=== PATIENT | female | born 1995 | race Caucasian/White ===

== ENCOUNTER → 2017-07-06 22:55 | Observation (INO) ==
[2017-07-06 21:35] LABS: Amphetamine Screen,Urine Negative ng/mL (Cutoff=1000); Barbiturate Screen,Urine Negative ng/mL (Cutoff=200); Benzodiazepines Screen,Urine Negative ng/mL (Cutoff=200); Cannabinoid Screen,Urine Negative ng/mL (Cutoff = 50); Cocaine Screen,Urine Negative ng/mL (Cutoff= 300); Opiate Screen,Urine Negative ng/mL (Cutoff=300); Phencyclidine Screen,Urine Negative ng/mL (Cutoff=25)
--- NOTE | 2017-07-06 22:36 | OB/GYN Progress Note ---
Date of Encounter: 07/06/17 Time of Encounter: 22:34 - Assessment and Plan (1) 38 weeks gestation of Current Visit: Yes Status: Acute NST reactive (2) False labor after 37 completed weeks of gestation Current Visit: Yes Status: Acute SSE with scant amount physiologic appearing discharge. Negative pooling, negative nitrazine, negative fern. SVE 2/50/-2, no change on repeat exam after ambulation. Discharge home with precautions. Subjective - Subjective Interval history: 22 year-old presenting at 38w4d with c/o contractions and leaking fluid. She reports the contractions are irregular but are getting stronger and she cannot talk through them. She reports some scant amounts of clear, thin, vaginal discharge. No other complaints. Good FM. Antepartum ROS: loss of fluid, movement normal, contractions, no vaginal bleeding Objective - Vital Signs Vital Signs: Intake and Output 07/06/17 07/06/17 07/06/17 07:59 15:59 23:59 Other: Weight 93.8 kg Patient Weight 07/06/17 23:59 Weight 93.8 kg - Exam FHR: category 1 FHR comments: NST reactive Auscultation: bilateral: normal Abdomen: Present: soft, gravid. Absent: tenderness Uterus: Absent: tenderness Cervical dilation: 2/50/-2 x 2 exams
== END | disposition home or self-care (01) ==
LOC: 1NENULAB
PROVIDERS: ADMIT Obstetrics & Gynecology; ATTEND Obstetrics & Gynecology

== ENCOUNTER 2017-07-12 06:00 | Inpatient (IN) ==
[2017-07-12] MEDS ORDERED: Famotidine 20 MG/2 ML VIAL IVP PRN (06:50)
[2017-07-12] MEDS ORDERED: Naloxone 0.4 MG/ML INJ IVP PRN (06:50)
[2017-07-12] MEDS ORDERED: miSOPROStol 25 MCG TABLET PO PRN (06:50)
[2017-07-12] MEDS ORDERED: Ondansetron 4 MG/2 ML VIAL IVP PRN (06:50)
[2017-07-12] MEDS ORDERED: D5% in Lactated Ringers 1,000 ML IVC SCH (07:00)
[2017-07-12 07:24] LABS: Basophils % 0.3 %; Eosinophils # 0.3 K/mcL (0.0-0.6); Eosinophils % 2.4 %; Hematocrit 41.6 % (35.3-44.9); Hemoglobin 13.8 g/dL (11.5-15.4); Immature Granulocytes % 0.7 % (0-4); Lymphocytes # 3.3 K/mcL (0.6-4.6); Lymphocytes % 26.7 %; Mean Corpuscular HGB Conc 33.2 g/dL (31.6-35.5); Mean Corpuscular Hemoglobin 30.7 pg (28.0-33.3); Mean Corpuscular Volume 92.7 fL (83.0-100.0); Mean Platelet Volume 10.4 fL (9.4-12.4); Monocytes # 0.9 K/mcL (0.0-1.3); Monocytes % 7.6 %; Neutrophils # 7.7 K/mcL (1.6-8.9); Platelet Count 266 K/mcL (140-400); Red Blood Count 4.49 M/mcL (3.82-4.97); Red Cell Distribution Width 12.8 % (11.5-14.5); Segmented Neutrophils % 62.3 %
[2017-07-12 07:33] LABS: Amphetamine Screen,Urine Negative ng/mL (Cutoff=1000); Barbiturate Screen,Urine Negative ng/mL (Cutoff=200); Benzodiazepines Screen,Urine Negative ng/mL (Cutoff=200); Cannabinoid Screen,Urine Negative ng/mL (Cutoff = 50); Cocaine Screen,Urine Negative ng/mL (Cutoff= 300); Opiate Screen,Urine Negative ng/mL (Cutoff=300); Phencyclidine Screen,Urine Negative ng/mL (Cutoff=25)
[2017-07-12] MEDS ORDERED: miSOPROStol 25 MCG TABLET PO SCH (08:00)
--- NOTE | 2017-07-12 08:48 | OB/GYN History & Physical ---
Date of Encounter: 07/12/17 Time of Encounter: 08:29 Assessment and Plan (1) 39 weeks gestation of Current visit: Yes Status: Acute The patient has received appropriate and adequate care. She is measuring large for gestational age with an ultrasound having an estimated weight of 8 lbs. 2 oz. at 37 weeks. (2) Polyhydramnios affecting in third trimester Current visit: Yes Status: Acute Acute onset the last 2 weeks of , otherwise unknown etiology, for induction of labor (3) Encounter for induction of labor Current visit: Yes Status: Acute Induction of labor medically indicated for polyhydramnios, to control rupture of membranes (4) Obesity affecting in third trimester, antepartum Current visit: Yes Status: Acute History of Present Illness Chief complaint: IOL 39 weeks, POLY HPI: Ms. Oswald is a 22 year old female, with an LMP of 10/09/16, EDC 07/16/17 confirmed by ultrasound, currently at 39 weeks and 3 days, who presents for labor and delivery for induction of labor. was complicated by obesity but had normal glucose testing and has had recent onset of polyhydramnios. Ultrasound on 07/09/17 showed an HARDY of 31.8. Ultrasound on showed an estimated weight of 8 lbs. 2 oz. She has had irregular contractions but no vaginal bleeding or loss of fluid. Fetus is active. Blood type is A+, she is rubella immune, varicella immune and GBS negative. She has previously delivered a 8 lbs. 1 oz. baby vaginally. Past Med Surg Social Fam HX - Past Medical History Source: patient, old records reviewed Medical history: other (Ovarian cysts) Psychiatric history: anxiety - Past Surgical History Surgical History: non-contributory - Social History Smoking Status: Never smoker Smokeless Tobacco Status: No Alcohol use: none Drug use: none - Family History Father Adopted: No Family Member Ethnicity: Non- Living Status: Still Living Hx Family Cardiac Disorders: No Hx Family Respiratory Disorders: No Hx Family Cancer: No Hx Family GI Disorders: No Hx Family Genitourinary Disorders: No Hx Family Endocrine Disorder: No Hx Family Musculoskeletal Disorders: No Hx Family Neuromuscular Disorders: No Hx Family Neurologic Disorders: No Hx Family HEENT Disorders: No Hx Family Autoimmune Disorders: No Hx Family Reproductive Disorders: No Hx Family Psychosocial Disorders: No Hx Family Medical Disorders: No Obstetrical History - Pregnancies : 2 Para: 1 Term: 1 : 0 Ab's: 0 Livin Medications and Allergies Vit #108/Iron/FA [ One Tablet] 1 tab PO DAILY 07/06/17 [History ] 3 Allergy/AdvReac Type Severity Reaction Status Date / Time Sulfa (Sulfonamide AdvReac Hives Verified 07/06/17 20:12 Antibiotics) Review of System OB All systems PM: reviewed and no additional remarkable complaints except as stated - Constitutional Constitutional ROS IM: weight gain - Gastrointestinal Gastrointestinal: cramping Exam - Vital Signs Vital signs: Afebrile, vital signs stable - Constitutional Constitutional: well developed, well nourished, no acute distress, obese - HEENT HEENT: Normocephaly, Mucus Membranes Moist - Neck Neck exam: normal inspection, supple - Lungs Respiratory exam: CTAB - Cardiovascular Cardiovascular exam: RRR - Breasts Breast: bilateral: normal (gravid) - Abdomen Abdomen: Present: bowel sounds normal, gravid, non tender - Extremities Extremities exam: normal inspection, pedal edema, warm Deep Tendon Reflex Grade: 2+ Normal - Vulva Vulva: bilateral: normal - Vagina Vagina: Present: normal moisture - Cervix Dilation: 3 Effacement: 70 Station: -3 - Anus/Rectum Anus/Rectum: Present: normal perianal skin Results Result Diagrams: 07/12/17 06:20 Abnormal lab results WBC 12.4 K/mcL (4.3-11.1) H 07/12/17 06:20 All other labs normal. - VTE Reasons for not Prescribing Prophylaxis: Treatment not Indicated - Low risk for VTE
[2017-07-12] MEDS ORDERED: D5% in 0.45% NACL 1,000 ML IVC SCH (09:15)
[2017-07-12] MEDS ORDERED: Ringers Solution, Lactated 1,000 ML ONE ×5 (11:26→22:30)
--- NOTE | 2017-07-12 11:28 | OB Labor Progress Note ---
Date of Encounter: 07/12/17 Time of Encounter: 11:26 Labor Progress Note - Subjective Subjective: The patient is comfortable with contractions, status post Cytotec 25 MCG's at 0730 - Vital Signs Vital Signs: Afebrile, vital signs stable - Cervix Cervix: 4/70/-1, vertex with bulging bag - Heart Tones Heart Tones: 130s baseline, CAT 1 - [place]: Contractions 2-4 minutes - Interventions Interventions: 39 week IUP for induction of labor for polyhydramnios - Plan Plan: Amniotomy performed with large amount of green stained fluid and large chunks of meconium. IUPC placed without difficulty. Respiratory to be notified to be present for delivery. Patient aware findings. Continue induction of labor. Patient is being prepped for an epidural, augmentation with Pitocin as needed.
[2017-07-12] MEDS ORDERED: Ringers Solution, Lactated 500 ML IVC ONE (11:36)
[2017-07-12] MEDS ORDERED: EPHEDrine 50 MG/ML VIAL IVP PRN (11:36)
[2017-07-12] MEDS ORDERED: Epidural Premix (fent/bupiv) 110 ML EP ONE ×2 (11:38→18:28)
[2017-07-12] MEDS ORDERED: Epidural Premix (fent/bupiv) 110 ML EP SCH (11:45)
--- NOTE | 2017-07-12 11:49 | Anesthesia Evaluation PreOp ---
Date of Encounter: 07/12/17 Time of Encounter: 11:48 - Past History Planned Operation: SARA Cardiac History: Denies any Significant Hx Pulmonary History: Denies Any Significant HX CERAMICS TEST ENGINEER History: Denies Any Significant HX Other Medical History: Denies Any Significant HX Anesthesia History: No Prior Anesthetic Complications : Yes (39.3) Alcohol Use: none Drug use: none Medications and Allergies Vit #108/Iron/FA [ One Tablet] 1 tab PO DAILY 07/06/17 [History ] 3 Allergy/AdvReac Type Severity Reaction Status Date / Time Sulfa (Sulfonamide AdvReac Hives Verified 07/06/17 20:12 Antibiotics) - Meds/Allergy Pre-op Review Medications Reviewed: Yes Allergies Reviewed: Yes Beta Blockers on Current Med List: No Anesthesia Results - Labs 07/12/17 06:20 Anesthesia Exam Height: 1.7m Weight: 93.8 NPO (# of Hours): 6 Pain Scale: 5 Pain Scale Used: Numeric (1 - 10) - HEENT Pupil (Motor): Pupils equal Mallampati: II Teeth: Normal Oral Opening: Greater than 3 - CERAMICS TEST ENGINEER LOC: Oriented CERAMICS TEST ENGINEER Motor: Normal RUE, Normal LUE, Normal RLE, Normal LLE, Normal Face CERAMICS TEST ENGINEER Sensory: Normal: RUE, LUE, RLE, LLE, Face - Cardiac Rhythm: Regular Murmur: None JVD: No Carotid Bruit: No - Pulmonary Breath Sounds: bilateral Clear Respiratory Effort: Symmetrical Anesthesia Assess/Plan ASA Score: 2 Modified Supriya Scale for Level of Consciousness: Cooperative, oriented, and tranquil Anesthetic Plan: General (plan b), Regional (plan a) Autologous Blood: Yes Monitoring Plan: Standard Monitors
[2017-07-12] MEDS ORDERED: *HR* Nalbuphine 20 MG/ML AMPUL IVP PRN (12:16)
--- NOTE | 2017-07-12 12:17 | Anesthesia Procedures ---
Date of Encounter: 07/12/17 Time of Encounter: 12:15 Procedures: Anesthesia - Epidural/Spinal Patient ID/Chart reviewed: Yes Patient examined: Yes OB Eval: Gestational age: 39.3 OB Eval: : 2 OB Eval: Hx Para: 1 OB Eval: Dilated at (cm): 4 OB Eval: Contractions: Non-stressed pattern Consent Obtained: Yes Supplemental Oxygen: None/Room Air Site Prep: Aseptic Technique, Sterile prep and drape, Povidone-Iodine 1% Patient position: upright Local Anesthetic: Lidocaine 1% Amount of Local Anesthetic used: 3 Touhy Needle Gauge: 18 Touhy Needle Depth (cm): 7 Catheter Depth at Skin (cm): 20 Test Dose (1.5% Lido + Epi): Volume given (mls): 5 Test Dose Result: Negative Loading Dose: Other: 10mls of epidural pharm bag premix solution Loading Dose Administered: Thru Catheter Infusion Med: 0.125% Bupivacaine w/ 2 mcg/ml Fentanyl Infusion Rate (mls/hr): 15 ([id number]) Catheter Secured in Place: Tegaderm, Tape Interspace Used: L4-L5 Loss of Resistance (SAAD): Yes Blood: No CSF: No Paresthesia: No Procedure: pt tolerated procedure well. no complications. vss. fhr stable. 127/82 hr 80 cath 1202 test 1203 bolus 1208 pump 1210
--- NOTE | 2017-07-12 12:47 | OB Labor Progress Note ---
Date of Encounter: 07/12/17 Time of Encounter: 12:45 Labor Progress Note - Subjective Subjective: Patient comfortable with her epidural, called in for nausea vomiting, hypotension with a deceleration into the heart rate of 80s x 2 minutes w/ return to 130s baseline - Vital Signs Vital Signs: Afebrile, vital signs stable, blood pressure to 120s over 70s, was 90s over 60s and patient given 15 of ephedrine - Cervix Cervix: 5/80/-1, vertex - Heart Tones Heart Tones: now 130s baseline, CAT1 - Wolf Trap Wolf Trap: contractions q 2-3' x 25-30mmHg, no pitocin - Interventions Interventions: 39w3d IOL, poly w/ mec - Plan Plan: Continue close observation, O2 FM on for 30', epidural dose decreased
[2017-07-12] MEDS ORDERED: Terbutaline 1 MG/ML VIAL SQ ONE ×3 (13:25→14:00)
[2017-07-12] MEDS ORDERED: 0.9 % Sodium Chloride 1,000 ML ONE (13:41)
--- NOTE | 2017-07-12 13:49 | Event Note ---
Date of Encounter: 07/12/17 Time of Encounter: 13:47 Called for heart tones being back down in the 90s. The nurse reported that her cervix has not had a significant change from her last exam. She reports frequent uterine contractions and was given an order to give subcutaneous terbutaline. The patient reports minimal relief with her epidural which had been turned down previously. Her blood pressure is normal 124/69. Patient repositioned with oxygen by facemask again and heart tones have returned to a baseline of 120s, CAT one at this time. Her contractions are now 20 mmHg and every 1-2 minutes. Amnioinfusion with normal saline has been ordered
[2017-07-12] MEDS ORDERED: Oxytocin 20 units/ LR 1000 mL 20 UNIT/1,000 ML BAG IVC ONE (17:11)
--- NOTE | 2017-07-12 19:24 | OB Labor Progress Note ---
Date of Encounter: 07/12/17 Time of Encounter: 19:21 Labor Progress Note - Subjective Subjective: Patient comfortable with epidural, just repositioned from peanut ball to high Fowlers. - Vital Signs Vital Signs: afeb, VSS - Cervix Cervix: 8/90/0 w/ prominant ant lip - Heart Tones Heart Tones: 140s, CAT1, episodes of CAT2 with variables - [place] Ozora: 1-3' 40 mmHg, no pitocin, 25 cytotec at 0730 - Interventions Interventions: 39 wk Poly w/ Mec - Plan Plan: Cont w/ IOL. Amnioinfusion complete w/ 500cc NS. Continue close observation
[2017-07-12] MEDS ORDERED: Lidocaine/EPI 1:200k 2% PF 20 ML VIAL ONE (21:43)
--- NOTE | 2017-07-13 00:21 | OB/GYN Procedure Note ---
Delivery - Delivery Date: 07/13/17 Provider: Mona Jean-Baptiste Intrapartum events: meconium Delivery induction: misoprostol Delivery augmentation: rupture of membranes Delivery monitor: external FHT, external uterine, internal FHT, internal uterine Anesthesia: epidural Estimated Blood Loss: 200 - (s) Infant A Infant Delivery Date: 07/12/17 Infant Delivery Time: 23:52 Presentation: vertex Position: RASHIDA Route of delivery: Gender: Male Viability: Viable Pounds: 8 Ounces: 14 Weight Gram: 4.03 kg at 1 minute: 8 at 5 mins: 9 Shoulder Dystocia: not encountered Placenta: spontaneous, uterine exploration Cord: 3 umbilical vessels - Repair Episiotomy: none Laceration Description: Periurethral - Complications Delivery complications: none Delivery comments: The patient was complete and pushing with epidural anesthesia with a spontaneous vaginal delivery in the RASHIDA position of a vigorous male infant weighing 8 lbs. 14 oz. with Apgars of 8 at 1 minute and 9 at 5 minutes. Bulb suctioning was performed on the perineum. was placed on the maternal abdomen. The cord was clamped and cut after pulsations ceased. The placenta was delivered spontaneous and intact. The uterus was explored and no retained products of conception were appreciated. Right periurethral laceration was closed with 4-0 monocryl in a running nonlocking fashion. There were no perineal or vaginal lacerations. Estimated blood loss 200 mL, complications none - Disposition Mom disposition: stable in LDR [place] disposition: stable in LDR
[2017-07-13] MEDS ORDERED: Oxytocin 20 units/ LR 1000 mL 20 UNIT/1,000 ML BAG IVC ONE (01:02)
[2017-07-13] MEDS ORDERED: Oxytocin 20 units/ LR 1000 mL 20 UNIT/1,000 ML BAG IVC SCH (01:38)
[2017-07-13] MEDS: Acetaminophen 325 MG TABLET PO PRN ×2 (02:54→16:43)
[2017-07-13] MEDS: Ibuprofen 600 MG TABLET PO SCH ×3 (06:18→20:57)
[2017-07-13 06:50] LABS: Basophils % 0.2 %; Eosinophils # 0.1 K/mcL (0.0-0.6); Eosinophils % 0.3 %; Hematocrit 33.7 % (35.3-44.9); Immature Granulocytes % 0.6 % (0-4); Lymphocytes # 2.6 K/mcL (0.6-4.6); Mean Corpuscular HGB Conc 33.5 g/dL (31.6-35.5); Mean Corpuscular Volume 92.3 fL (83.0-100.0); Mean Platelet Volume 9.9 fL (9.4-12.4); Monocytes # 1.5 K/mcL (0.0-1.3); Monocytes % 8.3 %; Neutrophils # 14.2 K/mcL (1.6-8.9); Platelet Count 198 K/mcL (140-400); Red Blood Count 3.65 M/mcL (3.82-4.97); Red Cell Distribution Width 12.8 % (11.5-14.5); Segmented Neutrophils % 76.6 %
[2017-07-13 06:51] LABS: Hemoglobin 11.3 g/dL (11.5-15.4)
--- NOTE | 2017-07-13 06:59 | OB/GYN Progress Note ---
Date of Encounter: 07/13/17 Time of Encounter: 07:03 - Assessment and Plan (1) Normal vaginal delivery Current Visit: Yes Status: Acute Meeting S/P vaginal delivery milestones Pain is well controlled Lochia is moderate and without clots VSS Voiding without difficulty Numbness from right knee to hip; will consult anesthesia well Anticipate discharge home tomorrow morning. (2) Mother currently breast-feeding Current Visit: Yes Status: Acute Subjective - Subjective Principal diagnosis: S/P Vaginal Delivery Patient reports: appetite normal, voiding normally, pain well controlled, other (Right leg numb from knee to hip) : doing well, nursing well Objective - Latest Vital Signs Latest vital signs: Vital Signs Temp Pulse Resp BP Pulse Ox 07/13/17 04:25 98.1 F 74 16 108/69 97 07/13/17 03:15 98.4 F 77 20 114/73 98 07/13/17 02:30 98.1 F 86 16 125/77 94 07/13/17 01:30 99.5 F 130 40 07/13/17 01:00 98.5 F 140 40 07/13/17 00:30 99.4 F 140 55 07/12/17 23:57 100.0 F H 160 38 Intake and Output 07/12/17 07/12/17 07/13/17 15:59 23:59 07:59 Intake Total 1999 1400 / 1400 Output Total 1300 / 1300 1450 / 1450 Balance 1999 -1300 / -1300 -50 / -50 Intake: IV Fluids 1999 Lactated Ringers 1,000 ML As . 1000 / 1000 ROUTE .STK-MED ONE Rx#: [id number] Lactated Ringers 500 ML @ 1000 1000 / 1000 mls/hr IVC .Q30M ONE Rx#: [id number] Oral 400 / 400 Other 1000 / 1000 Output: Urine 1450 / 1450 Catheter 1300 / 1300 Other: Weight 93.8 kg 91 kg Patient Weight 07/13/17 23:59 Weight 91 kg - Exam Extremities: Present: normal, edema (trace) Abdomen: Present: normal appearance, soft. Absent: gravid, tenderness Uterus: Present: normal, firm. Absent: tenderness Uterus Position: 2 Fingers Below Umbilicus, Midline - Labs Labs: Laboratory Results - last 24 hr 07/12/17 07/12/17 07/13/17 06:20 06:30 06:38 WBC 12.4 H 18.5 H RBC 4.49 3.65 L Hgb 13.8 11.3 L D Hct 41.6 33.7 L MCV 92.7 92.3 MCH 30.7 31.0 MCHC 33.2 33.5 RDW 12.8 12.8 Plt Count 266 198 MPV 10.4 9.9 Immature Gran % 0.7 0.6 Seg Neutrophils % 62.3 76.6 Lymphocytes % 26.7 14.0 Monocytes % 7.6 8.3 Eosinophils % 2.4 0.3 Basophils % 0.3 0.2 Neutrophils # 7.7 14.2 H Lymphocytes # 3.3 2.6 Monocytes # 0.9 1.5 H Eosinophils # 0.3 0.1 Basophils # 0.0 0.0 Urine Opiates Screen Negative Ur Barbiturates Screen Negative Ur Phencyclidine Scrn Negative Ur Amphetamines Screen Negative U Benzodiazepines Scrn Negative Urine Cocaine Screen Negative U Marijuana (THC) Screen Negative
[2017-07-13] MEDS: Prenatal Vit/FA 1 EACH TABLET PO SCH (11:18)
[2017-07-13] MEDS: Benzocaine/Menthol 56 GM AEROSOL SPRAY TP PRN (11:18)
[2017-07-14] MEDS: Ibuprofen 600 MG TABLET PO SCH ×2 (04:53→11:59)
--- NOTE | 2017-07-14 07:09 | Discharge Summary ---
Date of Encounter: 07/14/17 Time of Encounter: 07:20 - Discharge Diagnosis (1) 39 weeks gestation of Priority: Secondary Status: Resolved (2) Polyhydramnios affecting in third trimester Priority: Secondary Status: Resolved (3) Obesity affecting in third trimester, antepartum Priority: Secondary Status: Chronic (4) Normal vaginal delivery Priority: Secondary Status: Acute Comments: Pt meeting all milestones. (5) Mother currently breast-feeding Priority: Secondary Status: Acute (6) Contraceptive education Priority: Secondary Status: Acute Comments: Pt declines contraception prior to discharge. She is planning to discuss further at visit. - Discharge Medications Prescriptions: Acetaminophen [Tylenol] 650 mg PO Q6HR PRN #40 tablet PRN Reason: Mild Pain Ibuprofen [Motrin] 600 mg PO Q6HR #40 tablet Docusate [Colace] 100 mg PO BID #10 capsule Home Medications: Vit #108/Iron/FA [ One Tablet] 1 tab PO DAILY 07/06/17 [History ] Acetaminophen [Tylenol] 650 mg PO Q6HR PRN #40 tablet 07/14/17 [Rx] Benzocaine/Menthol [place] [Dermoplast [place]] 1 appl TP QID PRN aerosol 07/14/17 [Rx] Docusate [Colace] 100 mg PO BID #10 capsule 07/14/17 [Rx] Ibuprofen [Motrin] 600 mg PO Q6HR #40 tablet 07/14/17 [Rx] Allergies/Adverse Reactions: 3 Allergy/AdvReac Type Severity Reaction Status Date / Time Sulfa (Sulfonamide AdvReac Hives Verified 07/06/17 20:12 Antibiotics) Data Procedures and tests throughout hospitalization: Laboratory Tests 07/12/17 07/12/17 07/13/17 06:20 06:30 06:38 WBC 12.4 H 18.5 H RBC 4.49 3.65 L Hgb 13.8 11.3 L D Hct 41.6 33.7 L MCV 92.7 92.3 MCH 30.7 31.0 MCHC 33.2 33.5 RDW 12.8 12.8 Plt Count 266 198 MPV 10.4 9.9 Immature Gran % 0.7 0.6 Seg Neutrophils % 62.3 76.6 Lymphocytes % 26.7 14.0 Monocytes % 7.6 8.3 Eosinophils % 2.4 0.3 Basophils % 0.3 0.2 Neutrophils # 7.7 14.2 H Lymphocytes # 3.3 2.6 Monocytes # 0.9 1.5 H Eosinophils # 0.3 0.1 Basophils # 0.0 0.0 Urine Opiates Screen Negative Ur Barbiturates Screen Negative Ur Phencyclidine Scrn Negative Ur Amphetamines Screen Negative U Benzodiazepines Scrn Negative Urine Cocaine Screen Negative U Marijuana (THC) Screen Negative Date of admission: 07/12/17 06:32 Primary care physician: PCP NONE Consults: 07/13/17 01:38 Consult to Vacuum Repairer [CONS] Routine Comment: Vaginal delivery, consult needed Discharging clinician: Yolis Jeffers Anticipated date of discharge: 07/14/17 - Patient Status Disposition: Home, Self-Care Condition: Good Functional capacity at discharge: independent ambulation Overall status at discharge: patient is progressing back to baseline - Discharge Instructions Follow Up With: NONE,PCP [Primary Care Provider] - - Diet and Activity Activity: increase activity as tolerated Diet: advance to your usual diet Hospital Course Reason for admission: active labor Delivery: Episiotomy: none Laceration: vaginal side wall (right periurethral) Other procedures: none complications: none Discharge diagnosis: IUP at term delivered [place] baby: male Hospital course: - Delivery Date: 07/13/17 Provider: Mona Jean-Baptiste Intrapartum events: meconium Delivery induction: misoprostol Delivery augmentation: rupture of membranes Delivery monitor: external FHT, external uterine, internal FHT, internal uterine Anesthesia: epidural Estimated Blood Loss: 200 - Infant (s) A Infant Delivery Date: 07/12/17 Delivery Time: 23:52 Presentation: vertex Position: RASHIDA Route of delivery: Gender: Male Viability: Viable Pounds: 8 Ounces: 14 Weight Gram: 4.03 kg at 1 minute: 8 at 5 mins: 9 Shoulder Dystocia: not encountered Placenta: spontaneous, uterine exploration Cord: 3 umbilical vessels - Repair Episiotomy: none Laceration Description: Periurethral - Complications Delivery complications: none Delivery comments: The patient was complete and pushing with epidural anesthesia with a spontaneous vaginal delivery in the RASHIDA position of a vigorous male infant weighing 8 lbs. 14 oz. with Apgars of 8 at 1 minute and 9 at 5 minutes. Bulb suctioning was performed on the perineum. Infant was placed on the maternal abdomen. The cord was clamped and cut after pulsations ceased. The placenta was delivered spontaneous and intact. The uterus was explored and no retained products of conception were appreciated. Right periurethral laceration was closed with 4-0 monocryl in a running nonlocking fashion. There were no perineal or vaginal lacerations. Estimated blood loss 200 mL, complications none - Disposition Mom disposition: stable in Patient is voiding well, appetite good, mild lochia, + void, able to ambulated. Patient breast feeding well. Patient stable and ready for discharge. F/u with Dr. Jean-Baptiste in 4 weeks. Time Attestation: Total time spent providing and/or coordinating discharge services: Exam - Constitutional Vitals: Temp Pulse Resp BP Pulse Ox 97.4 F L 70 16 109/74 97 07/13/17 19:38 07/13/17 19:38 07/13/17 19:38 07/13/17 19:38 07/13/17 19:38 General appearance IM: cooperative, pleasant, no acute distress - Respiratory Respiratory exam: Present: CTAB - Cardiovascular Cardiovascular exam IM: Present: RRR - GI/Abdominal GI/Abdominal exam IM: normal bowel sounds, soft - Uterine Tone: Firm Uterus Position: 3 Fingers Below Umbilicus - Extremities Exam Extremities exam IM: Present: full ROM - Neurological Exam Neurological exam: alert, no focal deficits
[2017-07-14 08:36] VITALS: BP 122/82
[2017-07-14] MEDS: Prenatal Vit/FA 1 EACH TABLET PO SCH (09:08)
[2017-07-14] MEDS: Acetaminophen 325 MG TABLET PO PRN (09:11)
[2017-07-14] MEDS: Benzocaine/Menthol 56 GM AEROSOL SPRAY TP PRN (09:13)
== END 2017-07-14 13:07 | disposition home or self-care (01) | DRG 775 ==
LOC: 1NENULAB 06:32 → 1NENUOBS 07-13 01:59
PROVIDERS: ADMIT Obstetrics & Gynecology; ATTEND Obstetrics & Gynecology

== ENCOUNTER → 2021-01-22 13:10 | Observation (INO) ==
[2021-01-22 12:04] LABS: Bacteria,Urine Few per hpf (None-Few); Bilirubin,Urine Negative (Negative); Blood,Urine Negative (Negative); Clarity,Urine Turbid (Clear); Color,Urine Light-Yellow (Yellow); Glucose,Urine (UA) Normal (Normal); Ketones,Urine Negative (Negative); Leukocyte Esterase,Urine Negative (Negative); Mucus,Urine Few per lpf (None-Few); Nitrite,Urine Negative (Negative); PH,Urine 6.5 pH Units (5.0-8.0); Protein,Urine Trace mg/dL (Neg-Trace); RBC,Urine 0-3 per hpf (0-3); Specific Gravity,Urine 1.013 (1.010-1.025); Squamous Epithelial Cell,Urine Moderate per hpf (None-Few); Urobilinogen,Urine Normal (Normal); WBC,Urine 0-3 per hpf (0-3)
[2021-01-22 12:09] LABS: Protein/Creatinine Ratio,Urine 0.16 mg/mg (0.00-0.20)
[2021-01-22 12:25] LABS: Basophils % 0.3 %; Eosinophils # 0.1 K/mcL (0.0-0.6); Eosinophils % 0.4 %; Hematocrit 37.7 % (35.3-44.9); Hemoglobin 12.7 g/dL (11.5-15.4); Immature Granulocytes % 0.7 % (0-4); Lymphocytes # 2.3 K/mcL (0.6-4.6); Lymphocytes % 19.8 %; Mean Corpuscular HGB Conc 33.7 g/dL (31.6-35.5); Mean Corpuscular Hemoglobin 30.9 pg (28.0-33.3); Mean Corpuscular Volume 91.7 fL (83.0-100.0); Mean Platelet Volume 9.6 fL (9.4-12.4); Monocytes # 0.9 K/mcL (0.0-1.3); Monocytes % 7.4 %; Neutrophils # 8.3 K/mcL (1.6-8.9); Platelet Count 316 K/mcL (140-400); Red Blood Count 4.11 M/mcL (3.82-4.97); Segmented Neutrophils % 71.4 %; White Blood Count 11.6 K/mcL (4.3-11.1)
[2021-01-22 12:44] LABS: Alanine Aminotransferase 8 Units/L (7-52); Aspartate Amino Transferase 20 Units/L (13-39); BUN/Creatinine Ratio 7 (6-26); Blood Urea Nitrogen 4 mg/dL (6-20); Lactate Dehydrogenase 208 Units/L (140-271); eGFR For African Americans > 60 (> 60); eGFR For Non-African Americans > 60 (> 60)
[~2021-01-22 13:10] MED LIST: 0.9 % Sodium Chloride 1,000 ML IVC ONE; 0.9 % Sodium Chloride 1,000 ML ONE
== END | disposition home or self-care (01) ==
LOC: 1NENULAB
PROVIDERS: ADMIT Registered Nurse; ATTEND Registered Nurse

== ENCOUNTER 2021-02-13 21:56 | Inpatient (IN) ==
[2021-02-13] MEDS ORDERED: Naloxone 0.4 MG/ML INJ IVP PRN (21:59)
[2021-02-13] MEDS ORDERED: Metoclopramide 10 MG/2 ML VIAL IVP PRN (21:59)
[2021-02-13] MEDS ORDERED: Azithromycin 500 MG in 0.9 % Sodium Chloride 250 ML IVPB PRN (21:59)
[2021-02-13] MEDS ORDERED: miSOPROStoL 25 MCG TABLET PO PRN (21:59)
[2021-02-13] MEDS ORDERED: *HR* Nalbuphine 10 MG/ML AMPUL IV PRN (21:59)
[2021-02-13] MEDS ORDERED: Famotidine 20 MG/2 ML VIAL IVP PRN (21:59)
[2021-02-13] MEDS ORDERED: Ondansetron 4 MG/2 ML VIAL IVP PRN (21:59)
[2021-02-13] MEDS ORDERED: Lidocaine 1% 20 ML MDV INFILT PRN (21:59)
[2021-02-13] MEDS ORDERED: Ringers Solution, Lactated 1,000 ML IVC SCH (22:00)
[2021-02-13 22:34] LABS: Basophils % 0.2 %; Eosinophils # 0.1 K/mcL (0.0-0.6); Eosinophils % 0.4 %; Hematocrit 37.5 % (35.3-44.9); Hemoglobin 12.3 g/dL (11.5-15.4); Immature Granulocytes % 0.9 % (0-4); Lymphocytes # 2.9 K/mcL (0.6-4.6); Lymphocytes % 23.5 %; Mean Corpuscular HGB Conc 32.8 g/dL (31.6-35.5); Mean Corpuscular Hemoglobin 30.4 pg (28.0-33.3); Mean Corpuscular Volume 92.8 fL (83.0-100.0); Mean Platelet Volume 9.4 fL (9.4-12.4); Monocytes # 0.8 K/mcL (0.0-1.3); Monocytes % 6.4 %; Neutrophils # 8.6 K/mcL (1.6-8.9); Platelet Count 306 K/mcL (140-400); Red Blood Count 4.04 M/mcL (3.82-4.97); Red Cell Distribution Width 12.7 % (11.5-14.5); Segmented Neutrophils % 68.6 %; White Blood Count 12.5 K/mcL (4.3-11.1)
[2021-02-13 22:45] LABS: Amphetamine Screen,Urine Negative ng/mL (Cutoff=1000); Barbiturate Screen,Urine Negative ng/mL (Cutoff=200); Benzodiazepines Screen,Urine Negative ng/mL (Cutoff=200); Cannabinoid Screen,Urine Negative ng/mL (Cutoff = 50); Cocaine Screen,Urine Negative ng/mL (Cutoff= 300); Opiate Screen,Urine Negative ng/mL (Cutoff=300); Phencyclidine Screen,Urine Negative ng/mL (Cutoff=25)
[2021-02-13 22:55] LABS: Alanine Aminotransferase 10 Units/L (7-52); Albumin 3.3 g/dL (3.5-5.7); Albumin/Globulin Ratio 1.1 (1.1-2.2); Alkaline Phosphatase 133 Units/L (34-104); Aspartate Amino Transferase 18 Units/L (13-39); BUN/Creatinine Ratio 10 (6-26); Bilirubin,Total 0.3 mg/dL (0.3-1.0); Blood Urea Nitrogen 6 mg/dL (6-20); Calcium 8.8 mg/dL (8.6-10.3); Carbon Dioxide 20 mEq/L (23-29); Chloride 105 mEq/L (98-107); Globulin 3.1 g/dL (2.4-3.5); Glucose 127 mg/dL (70-105); Osmolality,Calculated 281 (280-300); Potassium 3.5 mEq/L (3.5-5.1); Sodium 136 mEq/L (136-145); Total Protein 6.4 g/dL (6.4-8.9); eGFR For African Americans > 60 (> 60); eGFR For Non-African Americans > 60 (> 60)
[2021-02-13 23:12] LABS: Influenza A PCR Negative (Negative); Influenza B PCR Negative (Negative); Resp. Syncytial Virus PCR Negative (Negative)
[2021-02-13 23:15] LABS: SARS-CoV-2 by PCR (In House) Negative (Negative)
[2021-02-14] MEDS ORDERED: EPHEDrine 50 MG/ML VIAL IVP PRN ×2 (00:54→07:30)
[2021-02-14] MEDS ORDERED: Epidural Premix (fent/bupiv) 110 ML EP SCH ×2 (01:00→07:30)
[2021-02-14] MEDS ORDERED: Oxytocin 20 units/ LR 1000 mL 20 UNIT/1,000 ML BAG IVC SCH ×2 (03:45→21:00)
[2021-02-14] MEDS ORDERED: Ropivacaine/PF 0.2% 20 ML VIAL EP ONE (07:30)
[2021-02-14] MEDS ORDERED: *HR* FentaNYL (PF) 100 MCG/2 ML VIAL EP ONE (07:30)
[2021-02-14 09:53] LABS: Protein/Creatinine Ratio,Urine 0.3 mg/mg (0.00-0.20)
[2021-02-14] MEDS ORDERED: miSOPROStoL 100 MCG TABLET PO STA (20:52)
[2021-02-14] MEDS ORDERED: Lanolin 7 G OINT...G. TP PRN (20:53)
[2021-02-14] MEDS ORDERED: Benzocaine/Menthol 56 GM AEROSOL SPRAY TP PRN (20:53)
[2021-02-14] MEDS: Acetaminophen 325 MG TABLET PO SCH (23:56)
[2021-02-14] MEDS: Ibuprofen 600 MG TABLET PO SCH (23:57)
[2021-02-15 03:20] LABS: Basophils % 0.2 %; Eosinophils % 0.1 %; Hematocrit 33.1 % (35.3-44.9); Hemoglobin 11.4 g/dL (11.5-15.4); Immature Granulocytes % 0.5 % (0-4); Lymphocytes % 11.3 %; Mean Corpuscular HGB Conc 34.4 g/dL (31.6-35.5); Mean Corpuscular Hemoglobin 31.7 pg (28.0-33.3); Mean Corpuscular Volume 91.9 fL (83.0-100.0); Mean Platelet Volume 9.8 fL (9.4-12.4); Monocytes # 1.8 K/mcL (0.0-1.3); Monocytes % 7.8 %; Neutrophils # 18.8 K/mcL (1.6-8.9); Platelet Count 290 K/mcL (140-400); Red Cell Distribution Width 12.7 % (11.5-14.5); Segmented Neutrophils % 80.1 %
[2021-02-15 03:22] LABS: Basophils # 0.1 K/mcL (0.0-0.2); Lymphocytes # 2.7 K/mcL (0.6-4.6); White Blood Count 23.5 K/mcL (4.3-11.1)
[2021-02-15] MEDS: Acetaminophen 325 MG TABLET PO SCH ×3 (06:25→18:29)
[2021-02-15] MEDS: Ibuprofen 600 MG TABLET PO SCH ×3 (06:25→18:29)
[2021-02-15] MEDS ORDERED: Prenatal Vit/FA 1 EACH TABLET PO SCH (09:00)
[2021-02-15 14:44] VITALS: O2SAT 99
[2021-02-15 15:58] VITALS: BP 115/81; PULSE 79; TEMP 97.6
[2021-02-15 16:23] LABS: Basophils # 0.1 K/mcL (0.0-0.2); Basophils % 0.3 %; Eosinophils # 0.1 K/mcL (0.0-0.6); Eosinophils % 0.6 %; Hematocrit 33.1 % (35.3-44.9); Immature Granulocytes % 0.6 % (0-4); Lymphocytes % 17.9 %; Mean Corpuscular HGB Conc 33.2 g/dL (31.6-35.5); Mean Corpuscular Hemoglobin 31.3 pg (28.0-33.3); Mean Corpuscular Volume 94.3 fL (83.0-100.0); Mean Platelet Volume 9.7 fL (9.4-12.4); Monocytes # 0.9 K/mcL (0.0-1.3); Monocytes % 5.4 %; Neutrophils # 12.5 K/mcL (1.6-8.9); Platelet Count 288 K/mcL (140-400); Red Blood Count 3.51 M/mcL (3.82-4.97); Segmented Neutrophils % 75.2 %; White Blood Count 16.6 K/mcL (4.3-11.1)
== END 2021-02-15 18:48 | disposition home or self-care (01) | DRG 806 ==
LOC: 1NENULAB 21:56 → 1NENUOBS 02-14 23:42
PROVIDERS: ADMIT Obstetrics & Gynecology; ATTEND Obstetrics & Gynecology